=== PATIENT | female | born 1950 | race Caucasian/White ===

== ENCOUNTER 2017-06-13 08:19 | Inpatient (IN) ==
--- NOTE | 2017-06-12 22:17 | Discharge Summary ---
<Tatiana Liao - Last Filed: 06/12/17 22:15> Date of Encounter: 06/12/17 - Discharge Diagnosis (1) Arthritis of knee, right Priority: Primary Status: Acute (2) Status post total replacement of right shoulder Priority: Primary Status: Acute (3) Obesity Priority: Secondary Status: Chronic Qualifiers: Obesity type: due to excess calories Obesity classification: unspecified obesity classification Serious obesity comorbidity presence: unspecified whether serious comorbidity present Qualified Code(s): E66.09 - Other obesity due to excess calories (4) Thyroid disease Priority: Secondary Status: Chronic - Discharge Medications Home Medications: Aspirin Enteric Coated [Aspirin EC] 325 mg PO DAILY #21 tablet.dr 06/12/17 [Rx] OxyCODONE Immed Rel [Roxicodone 5 MG] 5 - 10 mg PO Q6HR PRN #40 tablet 06/12/17 [Rx] Cholestyramine 4 gm PO BIDAC 06/13/17 [History] Gabapentin [Neurontin] 300 mg PO HS 06/13/17 [History] Glimepiride [Amaryl] 4 mg PO BID 06/13/17 [History] Insulin NPH Hum/Reg Insulin Hm [Novolin 70-30 100 Unit/ml Vial] 38 unit SQ QPM 06/13/17 [History] Insulin NPH Hum/Reg Insulin Hm [Novolin 70-30 100 Unit/ml Vial] 42 unit SQ QAM 06/13/17 [History] Levothyroxine Sodium 50 mcg PO DAILY 06/13/17 [History] Loratadine [Claritin] 10 mg PO DAILY 06/13/17 [History] Multivits,Ca,Min/Iron/FA/Lycop [Centrum Men's Tablet] 1 each PO DAILY 06/13/17 [ History] Omeprazole/Sodium Bicarbonate [Zegerid Otc 20-1,100 mg Cap] 1 cap PO DAILY 06/13 [History] Potassium Chloride [Klor-Con 10] 20 meq PO DAILY 06/13/17 [History] Tolterodine LA (24 HR) [Detrol LA] 4 mg PO DAILY 06/13/17 [History] Triamterene/HCTZ 37.5/25mg [Dyazide] 1 tab PO DAILY 06/13/17 [History] Allergies/Adverse Reactions: 3 Allergy/AdvReac Type Severity Reaction Status Date / Time latex Allergy Hives Verified 06/13/17 13:19 nitrofurantoin Allergy Difficulty Verified 06/13/17 13:19 [From Macrobid] Breathing Penicillins Allergy Difficulty Verified 06/13/17 13:19 Breathing carbamazepine [From Tegretol] AdvReac Drowsy Verified 06/13/17 12:45 clarithromycin [From Biaxin] AdvReac Nausea Verified 06/13/17 13:19 Primary care physician: Radha Michaels - Patient Status Disposition: Home, Self-Care Condition: Good - Discharge Instructions Follow Up With: Franklyn Myers MD [Partnered Physician] - 07/12/17 2:10 pm Tatiana Liao PAC [Physician Business Office Manager] - 06/23/17 8:45 am (Second followup (staple removal) 07/01/17 @ 9:45am with Nico Liao) Additional Instructions: Discharge Instructions: Total Knee Replacement Please call [facility] ([phone]), your Primary Care Physician, or report to the Emergency Room if you have any of the following symptoms: Nausea, vomiting, fever greater that 101.5, swelling, chest pain, shortness of breath, increased pain/redness/drainage/odor for your incision site, numbness/ tingling, or any other concerning symptoms. ACTIVITY:Weight-bearing as tolerated. You may progress off support (crutches or walker) as tolerated. MEDICATIONS: Upon discharge resume your home medications. Take all the medications as prescribed. Take a stool softener if taking narcotic pain medications. Stool softeners are only effective if you drink enough fluids. Drink 6-8 glass of water or fluids a day, unless this is not allowed for another health problem. Despite using stool softeners, if you haven't had a bowel movement in 3 days, please switch to a gentle laxative. Gentle laxatives are sold over the counter. You should have a bowel movement within 24 hours, if not call the office. You will be discharged from the hospital with a prescription for pain medication. You are encouraged to decrease the use of narcotic pain medication as tolerated. Should you require a refill, please call the office. [facility] prescribes narcotic pain medication for only 4-6 weeks after surgery. If you require pain medication beyond this time period, you may be referred to your Primary Care Physician or to the Pain Clinic for further evaluation. Plan ahead for refills on pain medication as many narcotics either need to be picked up at the office or mailed. It is best to call 48-72 hours in advance of needing a prescription refill so you don't run out of medication. To help control the post-operative pain, you may take NSAIDs (Aleve,Advil, Motrin, Ibuprofen, Naprosyn) or Tylenol as prescribed on the bottle in addition to the pain medication. ANTICOAGULATION (blood thinners): Continue your Aspirin, Lovenox or Coumadin as prescribed to help prevent a blood clot in the leg or in the lungs. As long as your incision remains dry and you tolerate the NSAIDs (Aleve, Advil, Motrin, ibuprofen, naprosyn), it is OK to use the NSAIDS while you are taking your anticoagulation medication. Should your incision start to drain, stop the NSAID and contact our office. Common symptoms of blood clot in the legs include: localized pain, swelling, calf tenderness, redness or discoloration of the skin. Blood clot in the lung symptoms include: shortness of breath, rapid pulse, sweating, and chest pain that worsens with deep breathing, coughing up blood, lightheadedness, feelings of anxiety. If you experience any of these symptoms notify your physician immediately, go to the emergency room, or if having trouble breathing, call 911. WOUND CARE: Leave the dressing on for 7 to 10days. You may change the dressing if it becomes saturated greater than 50%. Do not get the dressing wet at anytime. Wash your hands with antibacterial soap, rinse and dry prior to any wound care. If you have caro the visiting nurse or rehab facility can remove the stapes 10-14 days after surgery and place steri-strips across the wound. Leave the steri-strips in place until they fall off on their won. You may let water from the shower run on top of the steri-strips. If you do not have a visiting nurse or rehab facility, you will need to return to the office at 10-14 days for the caro to be removed. If you have itching or redness around the dressing call the office. FOLLOW-UP: Please follow up with your surgeon in the orthopedic clinic in 4 weeks from the day of surgery. If you have caro that need to be removed, you will need to come back to the office in 10-14 days from the day of surgery. - Hospital Course Hospital course: Ms. Ross is a 67 year old female - Time Spent with Patient Total time spent providing and/or coordinating discharge services: <Franklyn Myers - Last Filed: 06/15/17 06:53> Date of Encounter: 06/15/17 Time of Encounter: 06:53 - Discharge Diagnosis (1) Status post total replacement of right shoulder Priority: Primary Status: Deleted (2) Obesity Priority: Secondary Status: Chronic Qualifiers: Obesity type: due to excess calories Obesity classification: unspecified obesity classification Serious obesity comorbidity presence: unspecified whether serious comorbidity present Qualified Code(s): E66.09 - Other obesity due to excess calories (3) Thyroid disease Priority: Secondary Status: Chronic (4) Arthritis of knee, right Priority: Primary Status: Chronic (5) Diabetes type 1, controlled Priority: Secondary Status: Chronic Qualifiers: Diabetes mellitus complication status: with unspecified complications Qualified Code(s): E10.8 - Type 1 diabetes mellitus with unspecified complications (6) Status post total knee replacement, right Priority: Primary Status: Acute Primary care physician: Radha Michaels - Patient Status Functional capacity at discharge: uses cane/walker Overall status at discharge: patient is progressing back to baseline - Hospital Course Hospital course: Ms. Ross is a 67 year old female Status post right total knee replacement. The patient had an uneventful postoperative course. They received antibiotics and physical therapy and were discharged in stable condition. There will follow -up in the office in 2 weeks. - Time Spent with Patient Total time spent providing and/or coordinating discharge services:
--- NOTE | 2017-06-13 08:49 | Anesthesia Evaluation PreOp ---
Date of Encounter: 06/13/17 Time of Encounter: 08:47 - Past History Planned Operation: Right Total Knee Cardiac History: HTN Pulmonary History: Denies Any Significant HX POLYSOM TECH History: Seizures (none for 20 years) Other Medical History: Diabetes Type II, Thyroid (Grave's Disease secondary Hypothyroid), GERD, Other (Fibroyalgia) Anesthesia History: No Prior Anesthetic Complications, Past Anesthesia (BART, Appy, Ovarian cyst, sinus sx, Bladder sx, Lft TKR) : No Alcohol Use: none Drug use: none Medications and Allergies Aspirin Enteric Coated [Aspirin EC] 325 mg PO DAILY #21 tablet. 06/12/17 [Rx] OxyCODONE Immed Rel [Roxicodone 5 MG] 5 - 10 mg PO Q6HR PRN #40 tablet 06/12/17 [Rx] Cholestyramine 4 gm PO BIDAC 06/13/17 [History] Gabapentin [Neurontin] 300 mg PO HS 06/13/17 [History] Glimepiride [Amaryl] 4 mg PO BID 06/13/17 [History] Insulin NPH Hum/Reg Insulin Hm [Novolin 70-30 100 Unit/ml Vial] 38 unit SQ QPM 06/13/17 [History] Insulin NPH Hum/Reg Insulin Hm [Novolin 70-30 100 Unit/ml Vial] 42 unit SQ QAM 06/13/17 [History] Levothyroxine Sodium 50 mcg PO DAILY 06/13/17 [History] Loratadine [Claritin] 10 mg PO DAILY 06/13/17 [History] Multivits,Ca,Min/Iron/FA/Lycop [Centrum Men's Tablet] 1 each PO DAILY 06/13/17 [ History] Omeprazole/Sodium Bicarbonate [Zegerid Otc 20-1,100 mg Cap] 1 cap PO DAILY 06/13 [History] Potassium Chloride [Klor-Con 10] 20 meq PO DAILY 06/13/17 [History] Tolterodine LA (24 HR) [Detrol LA] 4 mg PO DAILY 06/13/17 [History] Triamterene/HCTZ 37.5/25mg [Dyazide] 1 tab PO DAILY 06/13/17 [History] 3 Allergy/AdvReac Type Severity Reaction Status Date / Time latex Allergy Hives Unverified 06/13/17 08:49 nitrofurantoin Allergy Difficulty Unverified 06/13/17 08:49 [From Macrobid] Breathing Penicillins Allergy Difficulty Unverified 06/13/17 08:49 Breathing clarithromycin [From Biaxin] AdvReac Nausea Unverified 06/13/17 08:49 - Meds/Allergy Pre-op Review Medications Reviewed: Yes Allergies Reviewed: Yes Beta Blockers on Current Med List: No Anesthesia Results - Labs Laboratory Tests 05/24/17 05/24/17 05/24/17 15:59 15:59 15:59 WBC 5.9 Hgb 13.5 Hct 43.0 Plt Count 243 INR 1.0 Sodium 143 Potassium 4.0 Chloride 105 Carbon Dioxide 30 H BUN 22 H Creatinine 1.35 H Latex Allergen IgE Ab 05/24/17 15:59 WBC Hgb Hct Plt Count INR Sodium Potassium Chloride Carbon Dioxide BUN Creatinine Latex Allergen IgE Ab <0.10 - Imaging EKG: image reviewed (SINUS RHYTHM LOW QRS VOLTAGE IN PRECORDIAL LEADS POSSIBLE ANTERIOR MYOCARDIAL INFARCTION, OF INDETERMINATE AGE) Anesthesia Exam O2 Sat Height 1.5 m Height 1.5 m Weight 83.915 kg Weight 83.915 kg O2 Sat by Pulse Oximetry 95 Vital Signs Temp Pulse Resp BP Pulse Ox 98.2 F 81 18 121/79 95 06/13/17 08:53 06/13/17 08:53 06/13/17 08:53 06/13/17 08:53 06/13/17 08:53 Height: 4'11'' Weight: 185# NPO (# of Hours): > 8 hrs Pain Scale: 0 Pain Scale Used: Numeric (1 - 10) - HEENT Pupil (Motor): Pupils equal, EOMI Mallampati: III Teeth: Missing Denture Type: Upper: Complete Oral Opening: Greater than 3 - POLYSOM TECH LOC: Oriented POLYSOM TECH Motor: Normal RUE, Normal LUE, Normal RLE, Normal LLE, Normal Face POLYSOM TECH Sensory: Normal: RUE, LUE, RLE, LLE, Face - Cardiac Rhythm: Regular Murmur: None JVD: No Carotid Bruit: No - Pulmonary Breath Sounds: bilateral Clear Respiratory Effort: Symmetrical Anesthesia Assess/Plan ASA Score: 3 Modified Fairview Scale for Level of Consciousness: Cooperative, oriented, and tranquil Anesthetic Plan: General, Regional (Left Fem. Nerve Block) Autologous Blood: Yes Monitoring Plan: Standard Monitors Recovery Plan: PACU
[2017-06-13] MEDS ORDERED: *HR* FentaNYL (PF) 100 MCG/2 ML VIAL ONE (08:57)
[2017-06-13] MEDS ORDERED: *HR* Midazolam HCl 2 MG/2 ML VIAL ONE (08:57)
[2017-06-13] MEDS ORDERED: *HR* Propofol 200 MG/20 ML VIAL IVP ONE (09:00)
[2017-06-13] MEDS ORDERED: Ketamine *HR* 500 MG/10 ML MDV ONE (09:00)
[2017-06-13] MEDS ORDERED: Lidocaine -MPF 2% 2 ML VIAL ONE (09:03)
[2017-06-13] MEDS ORDERED: Lidocaine -MPF 1% 2 ML VIAL ID ONE (09:04)
[2017-06-13] MEDS ORDERED: Clindamycin 900 MG/50 ML 900 MG/50 ML IV.SOLN IVPB ONE (09:04)
[2017-06-13] MEDS ORDERED: Ketorolac 30 MG/ML VIAL ONE ×2 (09:08→10:39)
[2017-06-13] MEDS ORDERED: Ringers Solution, Lactated 1,000 ML IVC SCH ×2 (09:15→12:34)
--- NOTE | 2017-06-13 09:31 | History & Physical Report ---
Date of Encounter: 06/13/17 Time of Encounter: 09:30 24 Hour HP Update - Instructions Instructions: If the History and Physical is less than 30 days old and was completed prior to A.M. admission and or procedure and has NOT been updated on calendar day of procedure please complete this update prior to performing procedure. - Update Patient reports changes in Medical Condition: No Changes in examination, assessment, or condition: No Changes in Medication: No Preop tests/diagnostics Reviewed: Yes Surgery Remains Indicated: Yes Consent for Planned Operative Procedure(s) Verified: Yes - Pre-Operative Checklist Preoperative Checklist Indicated: No Prophylactic Antibiotic Ordered: Yes Is VTE Prophylaxis Indicated?: Yes
[2017-06-13] MEDS ORDERED: ROPIVACAINE HCL/PF 0.5% 30 ML VIAL ONE (09:55)
--- NOTE | 2017-06-13 10:11 | Anesthesia Procedures ---
Date of Encounter: 06/13/17 Time of Encounter: 10:08 Procedures: Anesthesia - Nerve Block Procedure Date: 06/13/17 Time: 10:09 Surgical Procedure: right total knee replacment Checklist: Correct Patient Identifier, Correct procedure, History checked Correct side: Right Blood Thinner: No Monitor Applied: BP, Pulse Oximetry Supplemental Oxygen via Nasal Cannula (L/min): 2 Sedation: Versed (mg): 2 Sedation: Fentanyl (mcg): 100 Indication: Post Op Analgesia Pre-op Neuro Deficits: No Block Type: Femoral, Other (ipack ) Catheter placed: No Sterile Technique: Yes Ultrasound used: Yes Anatomy identified: Yes Visual spread of Local: Yes Neuro Stimulation: Yes Nerve Stimulator Range: 0.2 - 0.4 mA Blood on Needle Aspiration: No Smooth Injection of Local: Yes Pain with Injection of Local: No Prep: Chlorhexadine Needle: 22 x 50 mm Stimuplex Local: Ropivacaine (30ml 0.5% rop), Other (30ml 0.25% rop ) Volume (cc): 60 Number of Attempts: 1 Complications: None/effective block Vitals: vss, though out, block per request of surgeon
[2017-06-13] MEDS ORDERED: Ondansetron 4 MG/2 ML VIAL ONE (10:33)
[2017-06-13] MEDS ORDERED: Dexamethasone 4 MG/ML VIAL ONE (10:33)
[2017-06-13] MEDS ORDERED: *HR* Magnesium Sulfate 1 GM/2 ML VIAL ONE (10:33)
--- NOTE | 2017-06-13 10:35 | Physician Discharge Referral ---
Home Health/Hosp Referral Info Transfer to: Home Health Provider in Charge Post Discharge: PCP - Diagnosis (1) Arthritis of knee, right Priority: Primary Status: Chronic (2) Obesity Priority: Secondary Status: Chronic (3) Thyroid disease Status: Chronic (4) Status post total knee replacement, right Priority: Primary Status: Acute - Respiratory Orders None Smoking Cessation: Smoking cessation has been advised. For more information, call the [place] Tobacco Quit Line at 0-209-YWEY-NOW. - Diet/Nutrition Diet/Nutrition Orders: Regular - Activity Activity Orders: Up ad roberta, Ambulate - Services Needed Following services are medically necessary services: Nursing, Home Health Aide, Physical Therapy Other Treatments: Opsite placed. Keep dressing intact until first follow up appointment. If > 50% saturated,notify offfice, remove dressing and place appropriate dressing back in place. Dressing is water resistant, not water-proof. OK to shower, but do not get dressing wet. Sharmila in place, to be removed at POD#14-16. PT/OT. WBAT to affected extremity. Follow Total Knee Precautions x 6 weeks. Stay in brace at night only. Plan to discontinue brace after first post- operative appointment. ICE and elevate extremity frequently throughout the day. Encourage ambulation exercises. Use incentive spirometer 10 times every hour. - Transfer Medications Prescriptions: OxyCODONE Immed Rel [Roxicodone 5 MG] 5 - 10 mg PO Q6HR PRN #40 tablet PRN Reason: Pain Aspirin Enteric Coated [Aspirin EC] 325 mg PO DAILY #21 tablet. Home Medications: Aspirin Enteric Coated [Aspirin EC] 325 mg PO DAILY #21 tablet. 06/12/17 [Rx] OxyCODONE Immed Rel [Roxicodone 5 MG] 5 - 10 mg PO Q6HR PRN #40 tablet 06/12/17 [Rx] Cholestyramine 4 gm PO BIDAC 06/13/17 [History] Gabapentin [Neurontin] 300 mg PO HS 06/13/17 [History] Glimepiride [Amaryl] 4 mg PO BID 06/13/17 [History] Insulin NPH Hum/Reg Insulin Hm [Novolin 70-30 100 Unit/ml Vial] 38 unit SQ QPM 06/13/17 [History] Insulin NPH Hum/Reg Insulin Hm [Novolin 70-30 100 Unit/ml Vial] 42 unit SQ QAM 06/13/17 [History] Levothyroxine Sodium 50 mcg PO DAILY 06/13/17 [History] Loratadine [Claritin] 10 mg PO DAILY 06/13/17 [History] Multivits,Ca,Min/Iron/FA/Lycop [Centrum Men's Tablet] 1 each PO DAILY 06/13/17 [ History] Omeprazole/Sodium Bicarbonate [Zegerid Otc 20-1,100 mg Cap] 1 cap PO DAILY 06/13 [History] Potassium Chloride [Klor-Con 10] 20 meq PO DAILY 06/13/17 [History] Tolterodine LA (24 HR) [Detrol LA] 4 mg PO DAILY 06/13/17 [History] Triamterene/HCTZ 37.5/25mg [Dyazide] 1 tab PO DAILY 06/13/17 [History] Allergies/Adverse Reactions: 3 Allergy/AdvReac Type Severity Reaction Status Date / Time latex Allergy Hives Unverified 06/13/17 08:49 nitrofurantoin Allergy Difficulty Unverified 06/13/17 08:49 [From Macrobid] Breathing Penicillins Allergy Difficulty Unverified 06/13/17 08:49 Breathing clarithromycin [From Biaxin] AdvReac Nausea Unverified 06/13/17 08:49 Certification: Further, I certify that my clinical findings support that this patient is homebound (i.e. absences from home require considerable and taxing effort and are for medical reasons or jew services or infrequently or short duration when for other reasons) because: Homebound Reason: Post-surgery restriction and or conditions limit ability to leave home Attestation: My signature below is to certify that this patient is under my care and that I, or nurse practitioner, or a physician's medical library assistant working with me, has a face-to -face encounter with this patient.
[2017-06-13] MEDS ORDERED: Acetaminophen IV 1,000 MG/100 ML INFUS..BTL ONE (10:40)
[2017-06-13] MEDS ORDERED: *HR* Labetalol 20 MG/4 ML SYRINGE IVP PRN (10:50)
[2017-06-13] MEDS ORDERED: *HR* HYDROmorphone (PF) 1 MG/ML SYRINGE IVP PRN (10:50)
[2017-06-13] MEDS ORDERED: *HR* Promethazine 25 MG/ML VIAL IVP PRN (10:50)
--- NOTE | 2017-06-13 11:07 | Orthopedic Operative Note ---
Date of procedure: 06/13/17 Pre-op diagnosis: Right knee arthritis Post-op diagnosis: same Procedure: Procedure: right Total knee replacement Estimated blood loss: 400 cc Hardware: Metal and polyethylene replacement. Arthrex Femur: 4 Tibia:4 PS insert:14 Patella:34 Exam Under anesthesia: loss of full extension 5 degrees Procedural Notes: grade 4 arthritic changes medial and patellofemoral compartments Operative procedure: The patient was brought to the operating room and placed on the operating room table. After general anesthesia was administered the operative knee was examined. Findings were noted in the exam under anesthesia. The operative extremity was prepped and draped in sterile surgical fashion. The patient received IV antibiotics prior to skin incision. A standard midline incision was made centered over the patella. The incision was made through the skin and subcutaneous tissue. A medial parapatellar tendon approach was performed. Care was taken to preserve tissue along the medial aspect of the patella. And to protect the patella tendon. The deep MCL was released off the medial tibia. The infra patella fat pad was excised. Knee was brought into flexion. Patient noted to have grade 4 arthritic changes medial compartment and patellofemoral joint. The entry hole was made for the intramedullary femoral guide. The guide was seated in 6 degrees of valgus. Anterior cut was made followed by the distal cut. The ACL the PCL the medial and the lateral menisci were excised. The tibia was subluxed forward. The entry hole was made for the intramedullary tibial guide. Guide was seated to resect 2 mm off the more abnormal side. The knee was brought into flexion the distal femur was sized 4. The femoral guide was seated , the anterior cut was made followed by the posterior condylar cut, followed by the chamfer cuts. The finishing guide was seated the box cut was made and the lug holes were drilled. The tibia was sized 4, the tibial tray was seated and prepared with the large drill followed by the fin cutter. Trial reduction revealed full extension no varus valgus instability with the appropriate 14 PS Sonia. The patella was everted and cut was made at the level of the insertion of the quadriceps and patella tendon. The patella was sized 34 the guide was seated and the lug holes are drilled. Trial reduction revealed excellent patella tracking. All trial components were removed all bony surfaces were irrigated. The tibia was cemented first followed by the femur. 14 PS Sonia was seated and the knee was brought into full extension. The patella was cemented and held in place with the patellar holding clamp. After the cement had hardened, the knee sat for 2 minutes with a Betadine saline solution. The knee was then irrigated out with 2 L of pulse irrigation. The PA closed the knee. The extensor mechanism was closed with #2 FiberWire suture and #2 PDS suture. The subcutaneous tissue was then irrigated and closed deep with #1 PDS suture superficially with 0 PDS suture and skin was closed with skin caro. The patient was then placed in a sterile dressing and a postoperative brace extubated and transferred to recovery room in stable condition. Anesthesia: GETA Surgeon: Franklyn Myers Rail Layer: Tatiana Liao Condition: stable Disposition: PACU
[2017-06-13] MEDS ORDERED: *HR* HYDROmorphone 2 MG/ML SYRINGE ONE (11:24)
[2017-06-13 12:19] LABS: Hematocrit 37.2 % (35.3-44.9); Hemoglobin 11.9 g/dL (11.5-15.4)
--- NOTE | 2017-06-13 12:23 | Anesthesia Evaluation Post Op ---
Date of Encounter: 06/13/17 Time of Encounter: 12:17 - Vital Signs Vital Signs: vss - Lungs Lungs: Clear Ascult./Percussion - Airway Airway: Non-obstructed - Cardiovascular Baseline Rhythm - Mental Status Mental Status: Asleep with brisk response to light stimulation - Pain Pain Scale used: Ainsley (Faces) - Nausea Vomiting Nausea Vomiting: Not Present - Hydration Hydration: Ice chips - Discharge PostOp Status: Transfer Patient to floor
[2017-06-13] MEDS ORDERED: Dextrose Gel 15 GM PO PRN ×2 (12:34)
[2017-06-13] MEDS ORDERED: Ondansetron 4 MG/2 ML VIAL IVP PRN (12:34)
[2017-06-13] MEDS ORDERED: Sennosides 8.6 MG TABLET PO PRN (12:34)
[2017-06-13] MEDS ORDERED: *HR* OxyCODONE Immed Rel 5 MG TABLET PO PRN (12:34)
[2017-06-13] MEDS ORDERED: Naloxone 0.4 MG/ML INJ IVP PRN (12:34)
[2017-06-13] MEDS ORDERED: MOM Conc 10 ML UD.LIQ PO PRN (12:34)
[2017-06-13] MEDS ORDERED: D5% in Water 1,000 ML IVC PRN (12:34)
[2017-06-13] MEDS ORDERED: *HR* Dextrose 50 % in Water (Syg) 50 ML SYRINGE IVP PRN (12:34)
[2017-06-13] MEDS: *HR* HYDROmorphone (PF) 1 MG/ML SYRINGE IVP PRN (13:26)
[2017-06-13] MEDS: Insulin LISPRO 300 UNITS/3 ML VIAL SQ SCH ×2 (14:12→18:05)
[2017-06-13] MEDS ORDERED: *HR* Enoxaparin 30 MG/0.3 ML SYRINGE SQ SCH (18:00)
[2017-06-13] MEDS: *HR* Enoxaparin 30 MG/0.3 ML SYRINGE SQ SCH (18:03)
[2017-06-13] MEDS: Clindamycin 900 MG/50 ML 900 MG/50 ML IV.SOLN IVPB SCH ×2 (18:06→23:51)
[2017-06-13] MEDS: Insulin NPH/REG 70/30 100 UNIT/ML (x5UNIT) SQ SCH (18:06)
[2017-06-13] MEDS: Cholestyramine 4 GM POWD.PACK PO SCH (18:14)
[2017-06-13] MEDS: SODIUM BICARBONATE PO SCH (18:18)
[2017-06-13] MEDS: OMEPRAZOLE PO SCH (18:18)
[2017-06-13] MEDS ORDERED: Temazepam 15 MG CAPSULE PO PRN (21:00)
[2017-06-13] MEDS: Gabapentin 300 MG CAPSULE PO SCH (23:51)
[2017-06-13] MEDS: *HR* Glimepiride 4 MG TABLET PO SCH (23:51)
[2017-06-14] MEDS: Insulin LISPRO 300 UNITS/3 ML VIAL SQ SCH ×5 (00:25→22:04)
[2017-06-14] MEDS: *HR* Enoxaparin 30 MG/0.3 ML SYRINGE SQ SCH ×2 (05:23→17:09)
--- NOTE | 2017-06-14 06:54 | Orthopedics Progress Note ---
Date of Encounter: 06/14/17 Time of Encounter: 06:54 - Assessment and Plan (1) Status post total replacement of right shoulder Current Visit: Yes Status: Deleted (2) Obesity Current Visit: Yes Status: Chronic Qualifiers: Obesity type: due to excess calories Obesity classification: unspecified obesity classification Serious obesity comorbidity presence: unspecified whether serious comorbidity present Qualified Code(s): E66.09 - Other obesity due to excess calories (3) Thyroid disease Current Visit: Yes Status: Chronic (4) Arthritis of knee, right Current Visit: Yes Status: Chronic (5) Diabetes type 1, controlled Current Visit: Yes Status: Chronic Qualifiers: Diabetes mellitus complication status: with unspecified complications Qualified Code(s): E10.8 - Type 1 diabetes mellitus with unspecified complications (6) Status post total knee replacement, right Current Visit: Yes Status: Acute Subjective Interval history: Patient was seen this morning doing well without complaints. Afebrile vital signs stable. Operative extremity: Neurovascularly intact Dressing clean dry and intact Calves tender Assessment and plan: Continue with postoperative care Doppler right lower extremity today Objective Vital signs: Vital Signs Temp Pulse Resp BP Pulse Ox 06/14/17 05:16 97.7 F 101 17 111/77 94 06/13/17 21:11 97.4 F L 80 17 113/78 95 06/13/17 17:59 97.3 F L 06/13/17 17:12 96.2 F L 79 18 110/74 94 06/13/17 16:26 95.8 F L 06/13/17 15:20 95.7 F L 70 16 109/56 96 06/13/17 13:30 96.5 F L 69 14 100/59 96 06/13/17 13:00 96.4 F L 74 16 107/66 96 06/13/17 12:34 96.4 F L 70 14 115/80 97 06/13/17 12:18 97.1 F L 65 16 130/80 99 06/13/17 12:08 97.1 F L 67 12 131/71 97 06/13/17 11:58 65 16 128/82 96 06/13/17 11:48 65 12 130/85 97 06/13/17 11:38 98.7 F 75 16 127/83 96 06/13/17 10:20 70 16 115/62 98 06/13/17 10:08 69 16 110/64 97 06/13/17 09:54 98.2 F 81 18 121/79 06/13/17 09:46 67 16 138/81 06/13/17 08:53 98.2 F 81 18 121/79 95 Intake and Output 06/13/17 06/13/17 06/14/17 15:59 23:59 07:59 Intake Total 100 / 100 50 / 50 Output Total 400 / 400 Balance -300 / -300 50 / 50 Intake: IV Fluids 100 / 100 50 / 50 Cleocin Premix 900 MG/50 100 / 100 50 / 50 ML 900 mg In 50 ml @ 50 mls/hr IVPB Q8HR CATHERINE Rx#: [id number] Output: Estimated Blood Loss 400 / 400 Other: Weight 83.915 kg Blood Glucose* 149 290 345 - Labs CBC & BMP: 06/13/17 11:47 Labs: Abnormal lab results POC Glucose 171 (58-89) H 06/13/17 08:50 - VTE Documentation of Mechanical Device: Venous foot pump, device Consult Discharge Plan - Plan Referrals: Radha Michaels DO [Primary Care Provider] -
[2017-06-14 08:21] LABS: Hematocrit 31.9 % (35.3-44.9)
[2017-06-14 08:22] LABS: Hemoglobin 10.2 g/dL (11.5-15.4)
[2017-06-14 08:39] LABS: Calcium 8.8 mg/dL (8.6-10.8); Potassium 4.4 mEq/L (3.5-4.5)
[2017-06-14] MEDS ORDERED: OMEPRAZOLE PO SCH (09:00)
[2017-06-14] MEDS ORDERED: SODIUM BICARBONATE PO SCH (09:00)
[2017-06-14] MEDS: Insulin NPH/REG 70/30 100 UNIT/ML (x5UNIT) SQ SCH ×2 (09:00→17:12)
[2017-06-14] MEDS: Cholestyramine 4 GM POWD.PACK PO SCH ×2 (09:01→17:09)
[2017-06-14] MEDS: *HR* Glimepiride 4 MG TABLET PO SCH ×2 (09:01→22:04)
[2017-06-14] MEDS: Loratadine 10 MG TABLET PO SCH (09:01)
[2017-06-14] MEDS: Multivit/Ca/Min/Fe/FA 1 TAB TABLET PO SCH (09:01)
[2017-06-14] MEDS: Fluconazole 100 MG TABLET PO SCH (09:01)
[2017-06-14] MEDS: *HR* OxyCODONE Immed Rel 5 MG TABLET PO PRN ×4 (09:02→23:42)
[2017-06-14] MEDS: OMEPRAZOLE PO SCH (09:03)
[2017-06-14] MEDS: SODIUM BICARBONATE PO SCH (09:03)
[2017-06-14] MEDS: Tolterodine LA (24 HR) 4 MG CAP.ER.24H PO SCH (09:06)
[2017-06-14] MEDS ORDERED: 0.9 % Sodium Chloride 500 ML IVC ONE (12:04)
--- NOTE | 2017-06-14 12:04 | Event Note ---
Date of Encounter: 06/14/17 Time of Encounter: 12:01 PCR - Right TKR 06/14/17 - POD#1 Patient seen at bedside. Cormorbidities: DMII, Obesity, HTN, Kidney function/injury, Palpitations Labs: Cre - 06/14/17: 1.54 Baseline: 1.35 GFR - 06/14/17: 34 Baseline: GFR 39 Pain control: adequate Participating in PT. All questions and concerns addressed. Educated on use of incentive spirometer, ambulation, and hydration. Patient educated on post-operative restrictions and care. Addressed: Pain 06/14/17 - Bolus given, encouraged oral hydration - continue to monitor labs and kidney function 06/14/17 - Continue on Telemetry to monitor cardiac function due to palpitations 06/14/17 - Awaiting doppler D/C plan:. Home with .
[2017-06-14] MEDS: *HR* HYDROmorphone (PF) 1 MG/ML SYRINGE IVP PRN (19:36)
[2017-06-14] MEDS: Gabapentin 300 MG CAPSULE PO SCH (22:02)
[2017-06-15] MEDS: *HR* OxyCODONE Immed Rel 5 MG TABLET PO PRN (05:56)
[2017-06-15] MEDS: *HR* Enoxaparin 30 MG/0.3 ML SYRINGE SQ SCH (05:58)
[2017-06-15 06:50] VITALS: BP 134/79
[2017-06-15 06:53] LABS: Calcium 8.5 mg/dL (8.6-10.8); Potassium 4.1 mEq/L (3.5-4.5)
--- NOTE | 2017-06-15 06:55 | Orthopedics Progress Note ---
Date of Encounter: 06/15/17 Time of Encounter: 06:54 - Assessment and Plan (1) Status post total replacement of right shoulder Current Visit: Yes Status: Deleted (2) Obesity Current Visit: Yes Status: Chronic Qualifiers: Obesity type: due to excess calories Obesity classification: unspecified obesity classification Serious obesity comorbidity presence: unspecified whether serious comorbidity present Qualified Code(s): E66.09 - Other obesity due to excess calories (3) Thyroid disease Current Visit: Yes Status: Chronic (4) Arthritis of knee, right Current Visit: Yes Status: Chronic (5) Diabetes type 1, controlled Current Visit: Yes Status: Chronic Qualifiers: Diabetes mellitus complication status: with unspecified complications Qualified Code(s): E10.8 - Type 1 diabetes mellitus with unspecified complications (6) Status post total knee replacement, right Current Visit: Yes Status: Acute Subjective Interval history: Patient was seen this morning doing well without complaints. Afebrile vital signs stable. Operative extremity: Neurovascularly intact Dressing clean dry and intact Calves tender Assessment and plan: Continue with postoperative care Doppler negative discharged today hematocrit 32 Objective Vital signs: Vital Signs Temp Pulse Resp BP Pulse Ox 06/15/17 06:46 97.3 F L 94 18 134/79 96 06/15/17 01:10 97.6 F 89 17 146/81 93 06/14/17 19:19 97.7 F 88 18 131/84 94 06/14/17 15:07 97.7 F 88 18 123/81 98 06/14/17 11:13 97.3 F L 87 18 106/71 95 06/14/17 07:13 97.4 F L 79 18 104/70 93 Intake and Output 06/14/17 06/14/17 06/15/17 15:59 23:59 07:59 Intake Total 600 / 600 100 / 100 500 / 500 Balance 600 / 600 100 / 100 500 / 500 Intake: Oral 600 / 600 100 / 100 500 / 500 Other: Meal Lunch Percent of Meal Consumed 75% # Voids 1 1 Blood Glucose* 329 121 231 - Labs CBC & BMP: 06/14/17 07:51 06/14/17 07:51 Labs: Abnormal lab results Hgb 10.2 g/dL (11.5-15.4) L D 06/14/17 07:51 Hct 31.9 % (35.3-44.9) L 06/14/17 07:51 BUN 33 mg/dL (7-20) H 06/14/17 07:51 Creatinine 1.54 mg/dL (0.57-1.11) H 06/14/17 07:51 Est GFR ( Amer) 41 (> 60) L 06/14/17 07:51 Est GFR (Non-Af Amer) 34 (> 60) L 06/14/17 07:51 Glucose 280 mg/dL (70-99) H 06/14/17 07:51 POC Glucose 91 (58-89) H 06/14/17 21:44 Calculated Osmolality 303 (280-300) H 06/14/17 07:51 - VTE Documentation of Mechanical Device: Venous foot pump, device Consult Discharge Plan - Plan Additional Instructions: Discharge Instructions: Total Knee Replacement Please call [facility] ([phone]), your Primary Care Physician, or report to the Emergency Room if you have any of the following symptoms: Nausea, vomiting, fever greater that 101.5, swelling, chest pain, shortness of breath, increased pain/redness/drainage/odor for your incision site, numbness/ tingling, or any other concerning symptoms. ACTIVITY:Weight-bearing as tolerated. You may progress off support (crutches or walker) as tolerated. MEDICATIONS: Upon discharge resume your home medications. Take all the medications as prescribed. Take a stool softener if taking narcotic pain medications. Stool softeners are only effective if you drink enough fluids. Drink 6-8 glass of water or fluids a day, unless this is not allowed for another health problem. Despite using stool softeners, if you haven't had a bowel movement in 3 days, please switch to a gentle laxative. Gentle laxatives are sold over the counter. You should have a bowel movement within 24 hours, if not call the office. You will be discharged from the hospital with a prescription for pain medication. You are encouraged to decrease the use of narcotic pain medication as tolerated. Should you require a refill, please call the office. [facility] prescribes narcotic pain medication for only 4-6 weeks after surgery. If you require pain medication beyond this time period, you may be referred to your Primary Care Physician or to the Pain Clinic for further evaluation. Plan ahead for refills on pain medication as many narcotics either need to be picked up at the office or mailed. It is best to call 48-72 hours in advance of needing a prescription refill so you don't run out of medication. To help control the post-operative pain, you may take NSAIDs (Aleve,Advil, Motrin, Ibuprofen, Naprosyn) or Tylenol as prescribed on the bottle in addition to the pain medication. ANTICOAGULATION (blood thinners): Continue your Aspirin, Lovenox or Coumadin as prescribed to help prevent a blood clot in the leg or in the lungs. As long as your incision remains dry and you tolerate the NSAIDs (Aleve, Advil, Motrin, ibuprofen, naprosyn), it is OK to use the NSAIDS while you are taking your anticoagulation medication. Should your incision start to drain, stop the NSAID and contact our office. Common symptoms of blood clot in the legs include: localized pain, swelling, calf tenderness, redness or discoloration of the skin. Blood clot in the lung symptoms include: shortness of breath, rapid pulse, sweating, and chest pain that worsens with deep breathing, coughing up blood, lightheadedness, feelings of anxiety. If you experience any of these symptoms notify your physician immediately, go to the emergency room, or if having trouble breathing, call 911. WOUND CARE: Leave the dressing on for 7 to 10days. You may change the dressing if it becomes saturated greater than 50%. Do not get the dressing wet at anytime. Wash your hands with antibacterial soap, rinse and dry prior to any wound care. If you have caro the visiting nurse or rehab facility can remove the stapes 10-14 days after surgery and place steri-strips across the wound. Leave the steri-strips in place until they fall off on their won. You may let water from the shower run on top of the steri-strips. If you do not have a visiting nurse or rehab facility, you will need to return to the office at 10-14 days for the caro to be removed. If you have itching or redness around the dressing call the office. FOLLOW-UP: Please follow up with your surgeon in the orthopedic clinic in 4 weeks from the day of surgery. If you have caro that need to be removed, you will need to come back to the office in 10-14 days from the day of surgery. Referrals: Franklyn Myers MD [Partnered Physician] - 07/12/17 2:10 pm Tatiana Liao PAC [Physician Technician [employer] Repeater] - 06/23/17 8:45 am (Second followup (staple removal) 07/01/17 @ 9:45am with Nico Liao)
[2017-06-15 07:46] LABS: Hematocrit 28.8 % (35.3-44.9); Hemoglobin 8.9 g/dL (11.5-15.4)
[2017-06-15] MEDS: Cholestyramine 4 GM POWD.PACK PO SCH (08:26)
[2017-06-15] MEDS: Insulin LISPRO 300 UNITS/3 ML VIAL SQ SCH (08:27)
[2017-06-15] MEDS: Multivit/Ca/Min/Fe/FA 1 TAB TABLET PO SCH (08:27)
[2017-06-15] MEDS: Fluconazole 100 MG TABLET PO SCH (08:28)
[2017-06-15] MEDS: *HR* Glimepiride 4 MG TABLET PO SCH (08:28)
[2017-06-15] MEDS: Loratadine 10 MG TABLET PO SCH (08:28)
[2017-06-15] MEDS: Tolterodine LA (24 HR) 4 MG CAP.ER.24H PO SCH (08:28)
[2017-06-15] MEDS: Insulin NPH/REG 70/30 100 UNIT/ML (x5UNIT) SQ SCH (08:38)
[2017-06-15] MEDS: OMEPRAZOLE PO SCH (08:48)
[2017-06-15] MEDS: SODIUM BICARBONATE PO SCH (08:48)
[2017-06-15] MEDS ORDERED: Ibuprofen 800 MG TABLET PO PRN (09:07)
--- NOTE | 2017-06-15 11:59 | Event Note ---
Date of Encounter: 06/15/17 PCR - Right TKR 06/14/17 - POD#1 Patient seen at bedside. Cormorbidities: DMII, Obesity, HTN, Kidney function/injury, Palpitations Labs: Cre - 06/14/17: 1.54 Baseline: 1.35 GFR - 06/14/17: 34 Baseline: GFR 39 Pain control: adequate Participating in PT. All questions and concerns addressed. Educated on use of incentive spirometer, ambulation, and hydration. Patient educated on post-operative restrictions and care. Addressed: Pain 06/14/17 - Bolus given, encouraged oral hydration - continue to monitor labs and kidney function 06/14/17 - Continue on Telemetry to monitor cardiac function due to palpitations 06/14/17 - Awaiting doppler D/C plan:. Home with .
--- NOTE | 2017-06-16 08:09 | Venous Imaging Report ---
LE Venous Duplex Patient Name:Aurora Ross Order Number:[id number] Procedure Date:06/14/2017 Date:1950ge:67 yrs Gender:Female Location:[facility] Room #: [id number] Airborne Operations Manager:Lewis Rivera RN, RDCS Referring MD:Franklyn Myers MD Reading MD:Dave Pruitt MD Primary Indications:Pain in limb Secondary Indications: Risk Factors Yes/No Smoking Current No Anticoagulants Yes Previous Vascular Surgery No Hx of DVT No Hx of Chemotherapy No Trauma to Veins No Recent Surgery Yes Hx of Superficial Phlebitis No Impressions: Right lower extremity: normal superficial and deep exam. Recommendations: Test completed on 06/14/2017 at 5:10:00 pm. Findings Venous Duplex Results: Right: Venous imaging of the lower extremity reveals full patency and normal vessel compressibility of the right distal iliac, right common femoral, right superficial femoral, right popliteal, right posterior tibial, right peroneal, right great saphenous and right lesser saphenous. Doppler signals in the evaluated veins were normal. Left: Venous imaging of the lower extremity reveals full patency and normal vessel compressibility of the left common femoral. Doppler signals in the evaluated veins were normal. Prior Study: No prior study available for comparison. Lower Extremity Venous Duplex Side Vein Compress Spontaneous Flow Augment Diameter (cm) Depth (cm) Right Distal Iliac Normal Yes Phasic Yes Right Common Femoral Normal Yes Phasic Yes Right Superficial Femoral Normal Yes Phasic Yes Right Popliteal Normal Yes Phasic Yes Right Posterior Tibial Normal Yes Phasic Yes Right Peroneal Normal Yes Phasic Yes Right Great Saphenous Normal Yes Phasic Yes Right Lesser Saphenous Normal Yes Phasic Yes Left Common Femoral Normal Yes Phasic Yes Updated by Dave Pruitt MD on 06/16/2017 6:40:06 AM electronically signed on 06/16/2017 6:40:22 AM with status of Final
== END 2017-06-15 11:46 | disposition home or self-care (01) | DRG 470 ==
LOC: SAMDAY 08:19 → 3NENU 12:20
PROVIDERS: ADMIT Orthopaedic Surgery; ATTEND Orthopaedic Surgery